=== PATIENT | male | born 1960 | race American Indian/Alaskan Native ===

== ENCOUNTER 2017-09-25 12:00 | Emergency (ER) | payer OTHER ==
[2017-09-25 12:06] VITALS: BP 145/69; PULSE 63; TEMP 98.2; BMI 40.6
--- NOTE | 2017-09-25 12:53 | PDOC ---
History of Present Illness - General Chief Complaint: Back Pain Stated Complaint: BACK PAIN Time Seen by Provider: 09/25/17 12:23 - History of Present Illness Initial Comments: 57-year-old male with past medical history significant for diabetes and hypertension presents for evaluation of lower back pain 2 days. He states he was brushing his teeth when he went to stand up straight he felt pain in his lower back. He describes his pain as sharp exacerbated with motion relieved with rest with mild radiation of symptoms into the left hip. No prior problems with the lower back. No other associated symptoms. No loss of bowel or bladder function. 09/25/17 12:46 Past History - Past Medical History Allergies/Adverse Reactions: Allergies Allergy/AdvReac Type Severity Reaction Status Date / Time No Known Allergies Allergy Verified 09/25/17 12:04 Home Medications: Ambulatory Orders Cyclobenzaprine HCl [Flexeril 10 mg] 10 mg PO HS PRN #10 tablet 09/25/17 Hydrochlorothiazide [Hctz -] 50 mg PO DAILY 09/25/17 Labetalol HCl 100 mg PO BID 09/25/17 Methylprednisolone [Medrol Dose George] 4 mg PO ASDIR #21 tablet 09/25/17 Sitagliptin Phos/Metformin HCl [Janumet 50-1,000 mg Tablet] 1 each PO BID COPD: No Diabetes: Yes HTN: Yes - Surgical History Appendectomy: Yes - Suicide/Smoking/Psychosocial Hx Smoking History: Never smoked Review of Systems - Review of Systems Musculoskeletal: Yes: See HPI, Back Pain All Other Systems: Reviewed and Negative *Physical Exam - Vital Signs Last Vital Signs Temp Pulse Resp BP Pulse Ox 98.2 F 63 18 145/69 96 09/25/17 12:04 09/25/17 12:04 09/25/17 12:04 09/25/17 12:04 09/25/17 12:04 - Physical Exam Comments: Lumbar spine skin color and temperature within normal limits. He has decreased range of motion mild paralumbar musculature spasm greater on the left than the right. Mild midline tenderness about L2-3 and 4. He has 5 out of 5 strength in bilateral lower extremities including EHL plantar and dorsiflexion knee extension and hip flexion. His thighs and calves are soft and nontender is negative straight leg raise test bilaterally he has no gross sensorimotor deficits is neurovascular intact. 09/25/17 12:47 ED Treatment Course - RADIOLOGY Radiology Studies Ordered: Category Date Time Status SPINE-LUMBAR ONLY [RAD] Stat Radiology 09/25/17 12:41 Ordered - Medications Given in the ED: ED Medications Discontinued Medications Generic Name Dose Route Start Last Admin Trade Name Marcelloq PRN Reason Stop Dose Admin Oxycodone/Acetaminophen 2 combo 09/25/17 12:39 09/25/17 12:41 Percocet 5/325 - PO 09/25/17 12:40 2 combo ONCE ONE Administration Medical Decision Making - Medical Decision Making 7-year-old male with acute onset of lower back pain and mild left radiculopathy I'll get x-rays to rule out a vertebral compression fracture and have him follow -up with most likely spine surgery. He is having a difficult time ambulating. I treated his pain with Percocet and I will see how he does. I'll reevaluate him after x-rays. 09/25/17 12:53 09/25/17 13:16 X-rays of the lumbar spine been reviewed. 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 There is a straightening of the lumbar lordosis. I do not see any acute fracture. 09/25/17 13:43 His symptoms improved after analgesia. I'll prescribe a Medrol Dosepak and Flexeril. I've advised him that his blood sugar will rise with a Medrol Dosepak and he was instructed to check his sugars and adjust his diet accordingly. Return to the emergency room blood sugar over 300 and follow-up with his primary care doctor as well as spine surgeon next 1-2 days. *DC/Admit/Observation/Transfer Diagnosis at time of Disposition: Lumbar arthropathy - Discharge Dispostion Disposition: HOME Condition at time of disposition: Improved Decision to Admit order: No - Prescriptions Prescriptions: Cyclobenzaprine HCl [Flexeril 10 mg] 10 mg PO HS PRN #10 tablet PRN Reason: Muscle Spasms Methylprednisolone [Medrol Dose George] 4 mg PO ASDIR #21 tablet - Referrals Referrals: Carolina German MD [Primary Care Provider] - Jordon Ambriz MD [Staff Physician] - - Patient Instructions Printed Discharge Instructions: Lumbar Radiculopathy, DI for Lumbar Radiculopathy Additional Instructions: Return to the emergency room if your symptoms worsen or go unresolved prior to follow-up with spine surgery and your primary care physician. The medicine I prescribed he will make her blood sugar rise please be sure to check her blood sugar multiple times a day and adjust her diet accordingly as well as her medication dose. Return to the emergency room if your blood sugars over 300. Also be sure to follow-up with your primary care physician and spine surgery as directed. I've also prescribed few muscle relaxer which is one pill before bedtime. - Post Discharge Activity
== END 2017-09-25 13:49 | disposition home or self-care (01) ==
LOC: JERFT 12:00
DX: M54.16 Radiculopathy, lumbar region (principal); I10 Essential (primary) hypertension; E11.9 Type 2 diabetes mellitus without complications; Z79.84 Long term (current) use of oral hypoglycemic drugs
CPT/HCPCS: 72100-TC-FY; 99281-25

== ENCOUNTER 2024-09-18 08:37 | Day surgery (SDC) | payer OTHER ==
[2024-09-13 12:35] VITALS: BMI 37.3
[2024-09-18] MEDS: TROPICAMIDE 1% 3 ML EYE DROPS ONE (09:00)
[2024-09-18] MEDS: CYCLOPENTOLATE 2% OPHTH SOLN 2 ML BOTTLE ONE (09:00)
[2024-09-18] MEDS: CIPROFLOXACIN 0.3% EYE DROPS 5 ML BOTTLE ONE (09:00)
[2024-09-18] MEDS: PHENYLEPHRINE 2.5% OPTHALMIC DROP 2ML BOTTLE ONE (09:00)
[2024-09-18] MEDS ORDERED: LIDOCAINE 1% P/F 10 MG/ML VIAL ONE (09:06)
[2024-09-18] MEDS ORDERED: TETRACAINE 0.5% OPHTH SOLN 2 ML BOTTLE ONE (09:06)
[2024-09-18] MEDS ORDERED: CARBACHOL 0.01% INTRA-OCULAR 1.5 ML VIAL ONE (09:06)
[2024-09-18] MEDS ORDERED: EPINEPHrine 1:1000 P/F - 1 MG/ML AMP ONE (09:06)
[2024-09-18] MEDS ORDERED: BSS (NA/CA/MG/K) BALANCED SALT SOLUTION OPHTH SOLN 15 ML BOTTLE ONE (09:06)
[2024-09-18] MEDS ORDERED: NEO/POLYMYX B SULF/DEXAMETH OPHTHALMIC 5ML BOTTLE ONE (09:06)
[2024-09-18] MEDS ORDERED: MIDAZOLAM HCL 2 MG/2 ML SINGLE DOSE VIAL ONE (10:15)
[2024-09-18] MEDS ORDERED: PHENYLEPHRINE/KETOROLAC 4 ML VIAL IO ONE (10:28)
[2024-09-18 11:05] VITALS: RESP 20; TEMP 97.2
[2024-09-18 11:20] VITALS: BP 126/78; PULSE 56
== END 2024-09-18 11:20 | disposition home or self-care (01) ==
LOC: FASU 08:37
PROVIDERS: ATTEND Ophthalmology
PROC: 08RJ3JZ Replacement of Right Lens with Synthetic Substitute, Percutaneous Approach (ICD-10-PCS; principal; 2024-09-18 10:26)
DX: H26.8 Other specified cataract (principal)
CPT/HCPCS: 66984; V2632; 82962; J1097